=== PATIENT | male | born 1950 | race Caucasian/White ===

== ENCOUNTER 2018-03-10 17:32 | Emergency (ER) | payer MEDICARE, OTHER ==
[~2018-03-10] VITALS: Ht 175.3 cm; Wt 78.0 kg
[2018-03-10] MEDS ORDERED: CLINDAMYCIN PHOS 600 MG/ 4 ML VIAL IM ONE (18:00)
[2018-03-10 18:11] VITALS: BP 144/90
== END 2018-03-10 18:20 | disposition home or self-care (01) ==
LOC: FSED 17:33
DX: L03.032 Cellulitis of left toe (principal); I10 Essential (primary) hypertension; E11.9 Type 2 diabetes mellitus without complications
CPT/HCPCS: 99282

== ENCOUNTER 2018-07-31 21:24 | Emergency (ER) | payer MEDICARE, OTHER ==
[~2018-07-31] VITALS: Ht 175.3 cm; Wt 78.0 kg
== END 2018-07-31 21:55 | disposition left against medical advice (07) ==
LOC: FSED 21:24
DX: Z46.6 Encounter for fitting and adjustment of urinary device (principal)

== ENCOUNTER 2019-01-02 19:14 | Emergency (ER) | payer MEDICARE, OTHER ==
--- OUTSIDE RECORDS SUMMARY | 2019-01-02 19:18 | XMS REPORT ---
Author Author [facility] Address Unknown Phone Unavailable Care Team Providers Care Wire Fence Erector Name Role Phone Unavailable Unavailable Problems This patient has no known problems. Allergies, Adverse Reactions, Alerts This patient has no known allergies or adverse reactions. Medications This patient has no known medications. Encounters Start Date/Time End Date/Time Encounter Type Admission Type Attending Clinicians Care Facility Care Department Encounter ID 2018-09-01 11:56:00 2018-09-01 11:56:00 Outpatient [facility]RO [id number] Results Test Description Test Time Test Comments Text Results Atomic Results Result Comments XR Chest 1 View Frontal 2018-09-13 12:49:11 Patient: YISEL GUY Date/Time09/13/2018 11:55 CDTReason for Exampre opReportEXAM: CHEST ONE VIEWINDICATION: PRE OPCOMPARISON: None availableTECHNIQUE: AP view of the chest.FINDINGS:The cardiomediastinal silhouette is normal. There is a cardiac pacing device in the left chest with no apparent discontinuity of the leads. The lungs are clear bilaterally. No pneumothorax or pleural effusion is identified. The osseous structures are unremarkable.IMPRESSION:No acute cardiopulmonary process.LOCATION: R16 Final Dictated by: MD Harvey Melanie CDictated DT/TM: 09/13/2018 12:49 pmSigned by: MD Harvey Melanie CSigned (Electronic Signature): 09/13/2018 12:49 pm IR Pelvis 2018-07-12 11:04:49 Patient: YISEL GUY Date/Time07/12/2018 10:15 CSTReason for ExamGROSS HERMATURIAReportPROCEDURE: Image guided suprapubic tube placementINDIC ATION: Gross hematuria, urinary retentionOPERATOR: Arnold Luis M.D.MEDICATIONS:Rocephin 1 g IVSEDATION: Local anesthesia only.FLUOROSCOPY TIME: 1 second; DAP: 2 [id number]: NonePROCEDURE:The risks, benefits, and alternatives to the procedure and sedation were explained. Informed written consent was obtained. The patient was placed supine on the fluoroscopy table. The anterior pelvis was prepped and draped in the usual sterile fashion using all elements of maximum barrier sterile technique. 1% lidocaine was used for local anesthesia.The urinary bladder was identified sonographically. Under direct ultrasound guidance, an 18-gauge Chiba needle was advanced in a midline fashion into the urinary bladder. An image documenting needle placement was saved to the permanent record. A 0.035 Amplatz wire was curled in the urinary bladder. The soft tissues were appropriately dilated, then a 14 Japanese multipurpose drainage catheter was placed into the urinary bladder. Positioning was confirmed under fluoroscopy with a contrast injection. The postplacement cystogram shows moderate trabeculation of the urinary bladder. No contrast extravasation is seen.A gravity drainage bag was attached. The tube was secured to the skin using 2-0 Prolene. A sterile dressing was applied.The patient tolerated the procedure well, and left the radiology department in stable condition.IMPRESSION:Successful image guided placement of a suprapubic catheter.Location: R16 Final Dictated by: MD Luis Adam FDictated DT/TM: 07/12/2018 10:58 amSigned by: MD Luis Adam FSigned (Electronic Signature): 07/12/2018 11:04 am
--- OUTSIDE RECORDS SUMMARY | 2019-01-02 19:18 | XMS REPORT | Summary of Care ---
Author Author [facility] Address Unknown Phone Unavailable Encounter HQ Svitlana_bryant([facility]) [id number] Date(s): 02/07/16 - 02/08/[address] [address] [phone] Discharge Disposition: Home or Self Care Attending Physician: Gal Delcid MD Referring Physician: Gal Delcid MD Vital Signs No data available for this section Problem List No data available for this section Allergies, Adverse Reactions, Alerts No data available for this section Medications No data available for this section Results No data available for this section Immunizations No data available for this section Procedures No data available for this section Social History No data available for this section Assessment and Plan No data available for this section
--- OUTSIDE RECORDS SUMMARY | 2019-01-02 19:18 | XMS REPORT | Continuity of Care Document ---
Author Author [email or web address] Organization [email or web address] Address Unknown Phone Unavailable Care Team Providers Care Turn Sewer Name Role Phone [email or web address] Unavailable Unavailable Problems Problem Status Onset Date Classification Date Reported Comments Source N13.9 Active 08/24/2018 [facility] BK Active 01/21/2016 [facility] SUSPECTED BK Active 12/25/2015 [facility] Medications No Data Provided for This Section Allergies, Adverse Reactions, Alerts No Known Medication Allergies Immunizations No Data Provided for This Section Results No Data Provided for This Section Pathology Reports No Data Provided for This Section Diagnostic Reports Report Value Date Source Cystourethrogram voiding DX EXAM: FLUOROSCOPIC RETROGRADE URETHROGRAM DATE: 09/01/2018 1313 hours. INDICATION: OBSTRUCTIVE AND REFLUX UROPATHY, UNSPECIFIED ADDITIONAL INFORMATION: The patient has had urethral diverting procedure and is urethra has been rerouted and his urethra opening is now in his perineum. There are multiple used to is able to urinate using this rerouting, however now he is unable to urinate consistently and a suprapubic renal catheter has been placed. COMPARISON: None. TECHNIQUE: Approximately 375 mL of Cysto-Conray II was infused through suprapubic catheter. FLUOROSCOPY TIME: 40 seconds SKIN DOSE: 23.69 mGy DISCUSSION: Preliminary radiograph: Normal. Urethra: The rerouted portion of the urethra was opacified during urination. 2 areas of narrowing were noted. The proximal narrowing is located within the prostatic urethra in the distal narrowing is just proximal to the perineal reconstructed os. (Series 9 image 1). Urinary bladder: The urinary bladder shape and contour. Normal no filling defects were noted. IMPRESSION: 1. Two areas of narrowing were noted during urination and likely represent strictures, the first within the prostatic urethra and the second just proximal to the peroneal os. 09/01/2018 [facility] Consultation Notes No Data Provided for This Section Discharge Summaries No Data Provided for This Section History and Physicals No Data Provided for This Section Vital Signs No Data Provided for This Section Encounters Location Location Details Encounter Type Encounter Number Reason For Visit Attending Provider ADM Date DC Date Status Source [facility] Outpatient [id number] Gal Delcid 12/28/2015 12/28/2015 [facility] Outpatient [id number] Gal Delcid 02/08/2016 02/08/2016 [facility] Departed Emergency Room [id number] KELLY SCOTT MD 03/10/2018 03/10/2018 [facility] Departed Emergency Room [id number] LAVERNE WEBSTER MD 07/31/2018 07/31/2018 [facility] Outpatient [id number] Laverne Burch 09/01/2018 09/02/2018 [facility] Procedures Procedure Code Date Perfomer Comments Source Injection procedure for cystography or voiding urethrocystography 64220 09/01/2018 [facility] Assessment and Plan No Data Provided for This Section Plan of Care Plan of Care Date Source Discharge Date 07/31/18 9:55pm Disposition ELOPED Condition at Discharge Stable Forms Provided Work/School Excuse Prescriptions See Medication Section 07/31/2018 [facility] Social History Social History Date Source No data available for this section 09/02/2018 [facility] Smoking Status Start Date Stop Date Never Smoker 07/31/2018 [facility] No data available for this section 02/08/2016 [facility] Family History No Data Provided for This Section Advance Directives Order Name Results Value Date Source Advance Directives Advance Directives Directive Response Recorded Date/Time Does the patient have an advance directive? No 03/10/18 6:13pm If yes, is advance directive on file with [facility]? No 03/10/18 6:13pm If not on file with [facility] will patient provide a copy? No 03/10/18 6:13pm Do you have a Directive to Physician? No 07/31/18 9:47pm Do you have a Medical Power of Cloth Bleaching Range Back Tender? No 07/31/18 9:47pm Do you have an out of hospital Do Not Resuscitate Order? No 07/31/18 9:47pm Do you have any special needs we should be aware of? No 07/31/18 9:47pm Do you have a support person here with you today? No 07/31/18 9:47pm Did patient receive Notice of Privacy Practices? Yes 07/31/18 9:47pm Did patient receive patient rights and responsibilities? Yes 07/31/18 9:47pm 07/31/2018 [facility] Functional Status No Data Provided for This Section
--- OUTSIDE RECORDS SUMMARY | 2019-01-02 19:18 | XMS REPORT | Summary of Care ---
Author Author [facility] Address Unknown Phone Unavailable Encounter HQ Leighntr_bryant([facility]) [id number] Date(s): 12/27/15 - 12/28/[address] [address] Discharge Disposition: Home Attending Physician: Gal Delcid MD Referring Physician: [...]
--- OUTSIDE RECORDS SUMMARY | 2019-01-02 19:18 | XMS REPORT | Summary of Care ---
Author Author [facility] Organization [facility] Address Unknown Phone Unavailable Encounter HQ Encntr_alias(FIN) [id number] Date(s): 09/01/18 - 09/01/18 [facility] [address] [place] [address] [[email or web address] Discharge Disposition: Home or Self Care Attending Physician: Declan Burch MD Referring Physician: Declan Burch MD Vital Signs No data available for this section Problem List No data available for this section Allergies, Adverse Reactions, Alerts No data available for this section Medications No data available for this section Results No data available for this section Immunizations No data available for this section Procedures Procedure Date Related Diagnosis Body Site Status Injection procedure for cystography or 09/01/18 Completed voiding urethrocystography Social History No data available for this section Assessment and Plan No data available for this section
== END 2019-01-02 19:45 | disposition left against medical advice (07) ==
LOC: FSED 19:14
DX: L60.0 Ingrowing nail (principal)

== ENCOUNTER 2019-01-05 12:35 | Emergency (ER) | payer MEDICARE, OTHER ==
[~2019-01-05] VITALS: Ht 175.3 cm; Wt 79.0 kg
--- OUTSIDE RECORDS SUMMARY | 2019-01-05 12:38 | XMS REPORT | Continuity of Care Document ---
Author Author [employer] Organization [employer] Address Unknown Phone Unavailable Care Team Providers Care Recessing Machine Operator Name Role Phone [employer] Information Clifford Thames Unavailable Unavailable Problems Problem Status Onset Date Classification Date Reported Comments Source N13.9 Active 08/24/2018 [facility] BK Active 01/21/2016 [facility] SUSPECTED BK Active [...] just proximal to the peroneal os. 09/01/2018 [facility] Consultation Notes No Data Provided for This Section Discharge Summaries No Data Provided for This Section History and Physicals No Data Provided for This Section Vital Signs No Data Provided for This Section Encounters Location Location Details Encounter Type Encounter Number Reason For Visit Attending Provider ADM Date DC Date Status Source [facility] Outpatient [id number] Gal Delcid 12/28/2015 12/28/2015 [facility] Outpatient [id number] Gal Delcid 02/08/2016 02/08/2016 [facility] Departed Emergency Room [id number] KELLY SCOTT MD 03/10/2018 03/10/2018 [facility] Departed Emergency Room [id number] LAVERNE WEBSTER MD 07/31/2018 07/31/2018 [facility] Outpatient [id number] Laverne Burch 09/01/2018 09/02/2018 [facility] Procedures Procedure Code Date Perfomer Comments Source Injection procedure for cystography or voiding urethrocystography 17882 09/01/2018 [facility] Assessment and Plan No Data Provided for This Section Plan of Care Plan of Care Date Source Discharge Date 07/31/18 9:55pm Disposition ELOPED Condition at Discharge Stable Forms Provided Work/School Excuse Prescriptions See Medication Section 07/31/2018 [facility] Social History Social History Date Source No data available for this section 09/02/2018 [facility] Smoking Status Start Date Stop Date Never Smoker 07/31/2018 [facility] No data available for this section 02/08/2016 [facility] Family History No Data Provided for This Section Advance Directives Order Name Results Value Date Source Advance Directives Advance Directives Directive Response Recorded Date/Time Does the patient have an advance directive? No 03/10/18 6:13pm If yes, is advance directive on file with [facility]? No 03/10/18 6:13pm If not on file with [facility] will patient provide a copy? No 03/10/18 6:13pm Do you have a Directive to Physician? No 07/31/18 9:47pm Do you have a Medical Power of Ferry[employer]? No 07/31/18 9:47pm Do you have an [...] responsibilities? Yes 07/31/18 9:47pm 07/31/2018 [facility] Functional Status No Data Provided for This Section
[2019-01-05] MEDS ORDERED: ASPIR 8181 MG (12:57)
[2019-01-05] MEDS ORDERED: XARELTO20 MG (12:57)
[2019-01-05] MEDS ORDERED: LISINOPRIL2.5 MG PO (12:57)
[2019-01-05] MEDS ORDERED: ABILIFY5 MG PO (12:57)
[2019-01-05] MEDS ORDERED: VITAMIN B12-FO1 EACH (12:57)
[2019-01-05] MEDS ORDERED: METFORMIN HCL500 M2 PO (12:57)
[2019-01-05] MEDS ORDERED: VENLAFAXINE H37.5 M2 PO (12:57)
[2019-01-05] MEDS ORDERED: METOPROLOL SUCC25 MG (12:57)
[2019-01-05 13:45] VITALS: BP 140/76
== END 2019-01-05 13:20 | disposition home or self-care (01) ==
LOC: FSED 12:35
DX: L03.032 Cellulitis of left toe (principal); L60.0 Ingrowing nail
CPT/HCPCS: 99283